=== PATIENT | male | born 1940 | race Caucasian/White ===

== ENCOUNTER 2017-05-24 06:47 | Day surgery (SDC) | payer BC, MEDICARE ==
[2017-05-24] MEDS ORDERED: fentaNYL 100 MCG/2 ML SDV ONE (07:01)
[2017-05-24] MEDS ORDERED: Propofol 200 MG/20 ML SDV ONE (07:02)
[2017-05-24] MEDS ORDERED: Midazolam 1 MG/ML 2 ML SDV ONE (07:02)
[2017-05-24] MEDS ORDERED: Lactated Ringers 1,000 ML IV SCH (08:30)
--- NOTE | 2017-06-14 08:48 | OR ---
DATE OF PROCEDURE: 05/24/2017 PROCEDURE: Colonoscopy. FINDINGS: Large mass in the cecum, mostly consistent with a tubular adenoma. PREOPERATIVE DIAGNOSIS: Screening colonoscopy. POSTOPERATIVE DIAGNOSIS: Screening colonoscopy. RISKS: Risks, benefits, alternatives, and limitations including, but not limited to, infection, bleeding, and perforation were explained to the patient and wished to proceed. DESCRIPTION OF PROCEDURE: The patient was placed in the left lateral decubitus position. Digital rectal exam was performed without abnormality. The scope was introduced and advanced atraumatically to the ileocecal valve. At the ileocecal valve itself, there was an approximately 2 to 3 cm mass consistent with a polyp. Approximately half of this was removed using a hot snare. This was removed in conjunction with elevation with normal saline to " lift it." The scope was brought back through the remainder of the colon. No other abnormalities noted. No abnormalities on retroflexion. The patient tolerated the procedure well. Conrad Powell MD /[id number]
== END 2017-05-24 10:05 | disposition home or self-care (01) ==
LOC: JP.SDS 06:47
PROVIDERS: ATTEND Surgery
DX: D12.0 Benign neoplasm of cecum (principal); I10 Essential (primary) hypertension; G47.33 Obstructive sleep apnea (adult) (pediatric); K21.9 Gastro-esophageal reflux disease without esophagitis
CPT/HCPCS: 45385; 88305; J2250; J2704; J3010; J7120

== ENCOUNTER 2017-06-06 07:04 | Day surgery (SDC) | payer MEDICARE ==
[2017-06-06] MEDS ORDERED: Sodium Chloride 0.9% 1,000 ML IV SCH (08:00)
[2017-06-06] MEDS ORDERED: fentaNYL 100 MCG/2 ML SDV ONE (08:54)
[2017-06-06] MEDS ORDERED: Propofol 200 MG/20 ML SDV ONE (08:54)
--- NOTE | 2017-06-06 11:17 | OR ---
DATE OF PROCEDURE: 06/06/2017 PROCEDURE: Colonoscopy. FINDINGS/PATHOLOGY: 1. Ascending colon polyp, approximately less than 5 mm, completely removed using cold biopsy forceps. 2. Cecal colon tubular adenoma, majority removed using hot snare. COMPLICATIONS: None. FULFILLMENT ASSOCIATE: None. ANESTHESIA: MAC. PREOPERATIVE DIAGNOSIS: Tubular adenoma, cecum. POSTOPERATIVE DIAGNOSIS: Tubular adenoma, cecum. RISKS: Risks, benefits, alternatives, and limitations including, but not limited to infection, bleeding, and perforation were explained to the patient, and he wished to proceed. PROCEDURE IN DETAIL: The patient was placed in left lateral decubitus position. Digital rectal exam was performed without abnormality. The scope was then introduced and advanced atraumatically to the cecum. On the way, there was a very small polyp, approximately 5 mm, completely removed using cold biopsy forceps. The prep was again similar to last time, which was very poor. After about 15 minutes of suction and irrigation, the polyp was identified in the cecum. This is within 1 cm of the appendiceal orifice. This was injected with normal saline to elevate the polyp, then grasped with snare and removed it. Approximately greater than 95% of the polyp was removed. No other bleeding was noted. Scope was then removed, and the patient tolerated the procedure well. Conrad Powell MD /[id number]
== END 2017-06-06 10:50 | disposition home or self-care (01) ==
LOC: JP.SDS 07:04
PROVIDERS: ATTEND Surgery
DX: D12.0 Benign neoplasm of cecum (principal); D12.2 Benign neoplasm of ascending colon; I10 Essential (primary) hypertension; K21.9 Gastro-esophageal reflux disease without esophagitis
CPT/HCPCS: 45380; 45381; 45385; 88305; J2704; J3010; J7040

== ENCOUNTER 2017-11-21 06:17 | Day surgery (SDC) | payer MEDICARE ==
[2017-11-21] MEDS ORDERED: Sodium Chloride 0.9% 1,000 ML IV SCH (07:00)
[2017-11-21] MEDS ORDERED: Propofol 200 MG/20 ML SDV ONE (07:38)
[2017-11-21] MEDS ORDERED: fentaNYL 100 MCG/2 ML SDV ONE (07:38)
--- NOTE | 2017-11-22 07:47 | OR ---
DATE OF PROCEDURE: 11/21/2017 PROCEDURE: Colonoscopy. FINDINGS: 1. Diverticulosis limited to the sigmoid colon, described as moderate without evidence of diverticulitis. 2. Ascending colon polyp, approximately 8 mm, completely removed using cold biopsy forceps. COMPLICATIONS: None. EPIC CUPID ANALYST: None. ANESTHETIC: MAC. PREOPERATIVE DIAGNOSIS: History of colon polyps. POSTOPERATIVE DIAGNOSIS: History of colon polyps. RISKS: Risks, benefits, alternatives, and limitations including but not limited to infection, bleeding, and perforation were explained to the patient who wished to proceed. PROCEDURE IN DETAIL: The patient was placed in left lateral decubitus position. Digital rectal exam was performed without abnormality. The scope was introduced and advanced atraumatically to the ileocecal valve. The scope was brought back through the ascending, transverse, and descending colon and retroflexed. The previous polyp which was noted in the cecum was completely gone. In the ascending colon at the junction of the ascending and transverse colon, an additional small polyp was identified and completely removed. The remainder of the colon was inspected without abnormality, except for diverticulosis described as moderate. No abnormalities on retroflex, except for small hemorrhoids. The patient tolerated the procedure well. Conrad Powell MD /[id number]
== END 2017-11-21 09:23 | disposition home or self-care (01) ==
LOC: JP.SDS 06:17
PROVIDERS: ATTEND Surgery
DX: Z12.11 Encounter for screening for malignant neoplasm of colon (principal); D12.2 Benign neoplasm of ascending colon; K57.30 Diverticulosis of large intestine without perforation or abscess without bleeding; I10 Essential (primary) hypertension; K21.9 Gastro-esophageal reflux disease without esophagitis; Z86.010 Personal history of colon polyps
CPT/HCPCS: 45380; 88305; J2704; J3010; J7030

== ENCOUNTER 2018-06-23 10:30 | Emergency (ER) | payer MEDICARE, OTHER ==
--- NOTE | 2018-06-23 11:45 | EDM.PDOC ---
ED HPI GENERAL MEDICAL PROBLEM - General Chief Complaint: Genitourinary Problem Stated Complaint: PROBLEMS WITH BLADDER Time Seen by Provider: 06/23/18 11:25 Source of Information: Reports: Patient, Family History Limitations: Reports: No Limitations - History of Present Illness INITIAL COMMENTS - FREE TEXT/NARRATIVE: 77-year-old male with frequent urination and slow stream which is concerning him after going through some urologic procedures and having a Zarate catheter up until 3 days ago. He has no fevers or chills or significant discomfort. Associated Symptoms: Denies: Chest Pain, Fever/Chills, Loss of Appetite, Malaise , Nausea/Vomiting, Shortness of Breath Bladder Pain Score (Numeric/FACES): 3 - Related Data Allergies Allergy/AdvReac Type Severity Reaction Status Date / Time No Known Allergies Allergy Verified 06/23/18 11:18 Home Meds: Home Meds Fluticasone Propionate [Flonase] 2 spray NS DAILY PRN 05/23/17 [History] Gabapentin [Neurontin] 600 mg PO BID 05/23/17 [History] Loratadine [Claritin] 10 mg PO DAILY PRN 05/23/17 [History] NIFEdipine [Nifedipine ER] 30 mg PO DAILY 05/23/17 [History] Omeprazole 20 mg PO DAILY 05/23/17 [History] Polyethylene Glycol 3350 [Miralax] 17 gm PO DAILY 05/23/17 [History] Pseudoephedrine HCl [Sudafed] 30 mg PO DAILY PRN 05/23/17 [History] Simvastatin [Zocor] 40 mg PO DAILY 05/23/17 [History] Finasteride 5 mg PO DAILY 06/23/18 [History] Past Medical History HEENT History: Reports: Hard of Hearing, Impaired Vision Other HEENT History: wears glasses Cardiovascular History: Reports: High Cholesterol Respiratory History: Reports: COPD, Sleep Apnea, Other (See Below) Other Respiratory History: "a little bit of COPD" Gastrointestinal History: Reports: Chronic Constipation, Colon Polyp, Diverticulosis, GERD Genitourinary History: Reports: BPH, Other (See Below) Other Genitourinary History: nocturia Musculoskeletal History: Reports: Arthritis Neurological History: Reports: Vertigo Hematologic History: Reports: B12 Deficiency Oncologic (Cancer) History: Reports: Basal Cell Carcinoma Dermatologic History: Reports: Psoriasis, Other (See Below) Other Dermatologic History: basal cell CA on nose - Infectious Disease History Infectious Disease History: Reports: Measles - Past Surgical History HEENT Surgical History: Reports: Cataract Surgery, Tonsillectomy, Other (See Below) Other HEENT Surgeries/Procedures: wisdom teeth GI Surgical History: Reports: Colonoscopy, EGD, Hernia, Inguinal, Grecia Fundoplication Male Surgical History: Reports: Circumcision, Other (See Below) Other Male Surgeries/Procedures: "opened up prostate." Musculoskeletal Surgical History: Reports: Other (See Below) Other Musculoskeletal Surgeries/Procedures:: right wrist surgery Dermatological Surgical History: Reports: Other (See Below) Social & Family History - Family History Family Medical History: Noncontributory - Tobacco Use Smoking Status *Q: Never Smoker - Caffeine Use Caffeine Use: Reports: Coffee - Alcohol Use Days Per Week of Alcohol Use: 7 Number of Drinks Per Day: 2 Total Drinks Per Week: 14 - Recreational Drug Use Recreational Drug Use: No ED ROS GENERAL - Review of Systems Review Of Systems: See Below Constitutional: Denies: Fever, Chills, Malaise Respiratory: Denies: Shortness of Breath GI/Abdominal: Denies: Abdominal Pain, Nausea, Vomiting : Reports: Dysuria, Frequency, Urgency. Denies: Urinary Retention Skin: Reports: No Symptoms ED EXAM, RENAL/ - Physical Exam Exam: See Below Exam Limited By: No Limitations General Appearance: Alert, No Apparent Distress Head: Atraumatic Respiratory/Chest: No Respiratory Distress GI/Abdominal: Soft, Non-Tender (Male) Exam: No: Suprapubic Fullness Neurological: Alert, Oriented Psychiatric: Normal Affect, Normal Mood Course - Vital Signs Last Recorded V/S: Last Vital Signs Temp 96.2 F 06/23/18 11:14 Pulse 68 06/23/18 11:14 Resp 14 06/23/18 11:14 BP 129/65 06/23/18 11:14 Pulse Ox 95 06/23/18 11:14 - Re-Assessments/Exams Free Text/Narrative Re-Assessment/Exam: 06/23/18 11:44 Urine looks clear, post void bladder scan showed only 18 mL. This patient just had a Zarate removed 3 days ago and I think just needs more time as he likely has some urethral irritation. He is emptying the bladder and does not have significant hematuria. He will return over the next 48 hours if worsening such as retention or fever, otherwise no treatment is necessary at this time. Departure - Departure Time of Disposition: 11:51 Disposition: Home, Self-Care 01 Condition: Good Clinical Impression: Urethritis - Discharge Information Instructions: Urethritis, Adult Referrals: Kit Milton LEGAL AID [Primary Care Provider] - Forms: ED Department Discharge Care Plan Goals: Continue urination as needed, return anytime if worsening such as urinary retention or fever, or increased pain. Discuss symptoms with urology if persistent or you develop other concerns.
== END 2018-06-23 11:52 | disposition home or self-care (01) ==
LOC: JP.ED 10:30
DX: N34.2 Other urethritis (principal); J44.9 Chronic obstructive pulmonary disease, unspecified; Z79.899 Other long term (current) drug therapy
CPT/HCPCS: 51798; 99282; 99283

== ENCOUNTER 2020-08-07 18:06 | Emergency (ER) | payer OTHER, MEDICARE ==
--- NOTE | 2020-08-07 18:42 | EDM.PDOC ---
ED HPI GENERAL MEDICAL PROBLEM - General Chief Complaint: General Stated Complaint: SWOLLEN TESTICAL Time Seen by Provider: 08/07/20 18:30 Source of Information: Reports: Patient History Limitations: Reports: No Limitations - History of Present Illness INITIAL COMMENTS - FREE TEXT/NARRATIVE: Feliberto is a 79-year-old male presenting to the ED with concerns about a swollen and painful left testicle. Patient stated the symptoms started about 4 days ago and is continued to worsen each day. Patient has been driving back and forth between his home and [place] to visit his who is currently being hospitalized there after having a seizure and fall. He states that riding in his pickup truck causes it to become very tender. He has not had no problems with urinating. He has a history this significant for recurrent testicular torsion. He states that he has had it on bilateral testicles and that the urologist "punched them back into my abdomen to get the circulation going again". The last time he had a torsion on the right they ended up taking him to the operating room but it does not appear that they did a orchiectomy as he still has both testicles. Denies any fever, chills, cough or shortness of breath, constipation or prolonged bearing down. He does not have a history of hernias. Had no penile discharge. - Related Data Allergies Allergy/AdvReac Type Severity Reaction Status Date / Time No Known Allergies Allergy Verified 08/07/20 18:25 Home Meds: Home Meds Fluticasone Propionate [Flonase] 2 spray NS DAILY PRN 05/23/17 [History] Gabapentin [Neurontin] 600 mg PO BID 05/23/17 [History] Loratadine [Claritin] 10 mg PO DAILY PRN 05/23/17 [History] NIFEdipine [Nifedipine ER] 30 mg PO DAILY 05/23/17 [History] Omeprazole 20 mg PO DAILY 05/23/17 [History] Pseudoephedrine HCl [Sudafed] 30 mg PO DAILY PRN 05/23/17 [History] Simvastatin [Zocor] 40 mg PO DAILY 05/23/17 [History] polyethylene glycoL 3350 [Miralax] 17 gm PO DAILY 05/23/17 [History] Finasteride 5 mg PO DAILY 06/23/18 [History] Tamsulosin [Tamsulosin 24 Hr] 0.4 mg PO DAILY 08/07/20 [History] Past Medical History HEENT History: Reports: Hard of Hearing, Impaired Vision Other HEENT History: wears glasses Cardiovascular History: Reports: High Cholesterol Respiratory History: Reports: COPD, Sleep Apnea, Other (See Below) Other Respiratory History: "a little bit of COPD" Gastrointestinal History: Reports: Chronic Constipation, Colon Polyp, Diverticulosis, GERD Genitourinary History: Reports: BPH, Other (See Below) Other Genitourinary History: nocturia Musculoskeletal History: Reports: Arthritis Neurological History: Reports: Vertigo Hematologic History: Reports: B12 Deficiency Oncologic (Cancer) History: Reports: Basal Cell Carcinoma Dermatologic History: Reports: Psoriasis, Other (See Below) Other Dermatologic History: basal cell CA on nose - Infectious Disease History Infectious Disease History: Reports: Measles - Past Surgical History Head Surgeries/Procedures: Reports: None HEENT Surgical History: Reports: Cataract Surgery, Tonsillectomy, Other (See Below) Other HEENT Surgeries/Procedures: wisdom teeth Cardiovascular Surgical History: Reports: None Respiratory Surgical History: Reports: None GI Surgical History: Reports: Colonoscopy, EGD, Hernia, Inguinal, Grecia Fundoplication Male Surgical History: Reports: Circumcision, Other (See Below) Other Male Surgeries/Procedures: "opened up prostate." Neurological Surgical History: Reports: None Musculoskeletal Surgical History: Reports: Other (See Below) Other Musculoskeletal Surgeries/Procedures:: right wrist surgery Oncologic Surgical History: Reports: None Dermatological Surgical History: Reports: Other (See Below) Social & Family History - Family History Family Medical History: No Pertinent Family History - Tobacco Use Tobacco Use Status *Q: Never Tobacco User Second Hand Smoke Exposure: No - Caffeine Use Caffeine Use: Reports: Coffee - Alcohol Use Days Per Week of Alcohol Use: 7 Number of Drinks Per Day: 2 Total Drinks Per Week: 14 - Recreational Drug Use Recreational Drug Use: No ED ROS GENERAL - Review of Systems Review Of Systems: See Below Constitutional: Reports: No Symptoms GI/Abdominal: Reports: No Symptoms : Reports: Other (Swollen and tender left testicle for 4 days.) ED EXAM, GENERAL - Physical Exam Exam: See Below Exam Limited By: No Limitations General Appearance: Alert, Mild Distress GI/Abdominal: Normal Bowel Sounds, Soft, Non-Tender. No: Guarding, Rebound (Male) Exam: No Hernia, Scrotum Tenderness (L), Testicular Tenderness (L). No: Cremasteric Reflex (No cremasteric reflex on the left. There is a cremasteric reflex on the right.) Neurological: Alert, Oriented, Normal Cognition, No Motor/Sensory Deficits Course - Vital Signs Last Recorded V/S: Last Vital Signs Temp 36.9 C 08/07/20 18:29 Pulse 90 08/07/20 18:29 Resp 16 08/07/20 18:29 BP 145/70 H 08/07/20 18:29 Pulse Ox 96 08/07/20 18:29 - Orders/Labs/Meds Orders: Active Orders 24 hr Category Date Time Status Scrotal Duplex Ltd [US] Stat Exams 08/07/20 18:32 Taken Scrotum and Contents [US] Stat Exams 08/07/20 18:32 Taken Meds: Medications Discontinued Medications Generic Name Dose Route Start Last Admin Trade Name Freq PRN Reason Stop Dose Admin Ceftriaxone Sodium 500 mg 08/07/20 19:31 08/07/20 19:53 Ceftriaxone 500 Mg Vial IM 08/07/20 19:32 500 mg ONETIME ONE Administration - Radiology Interpretation Free Text/Narrative:: Ultrasound of the testicles and scrotal contents as well as duplex managing of the left testicle demonstrate normal flow to the testicles but evidence for acute epididymitis on the left. - Re-Assessments/Exams Free Text/Narrative Re-Assessment/Exam: 08/07/20 19:28 I reviewed the ultrasound showing acute epididymitis on the left. Will place the patient on antibiotics with ceftriaxone 500 mg IM and then doxycycline 100 mg twice daily for 10 days. Indications to return to the ED were discussed with the patient. At this time he suitable for discharge home in satisfactory condition. Departure - Departure Time of Disposition: 19:57 Disposition: Home, Self-Care 01 Clinical Impression: Acute epididymitis - Discharge Information Instructions: Epididymitis Referrals: Kit Milton NP [Primary Care Provider] - Forms: ED Department Discharge Care Plan Goals: You received an injection of ceftriaxone 500 mg to initiate therapy for the epididymitis which is an infection in the collecting system of the testicle. You will also be on doxycycline 100 mg twice daily for 10 days to complete the treatment for this infection. Follow-up with your primary care provider in 10 to 12 days for recheck. Return to the ED should you have increased swelling or difficulty with taking the antibiotic. Sepsis Event Note (ED) - Evaluation Sepsis Screening Result: No Definite Risk - Focused Exam Vital Signs: Vital Signs Temp Pulse Resp BP Pulse Ox 08/07/20 18:29 36.9 C 90 16 145/70 H 96 08/07/20 18:22 36.9 C 90 16 145/70 H 96 - Problem List & Annotations (1) Acute epididymitis SNOMED Code(s): 00565939 Code(s): N45.1 - EPIDIDYMITIS Status: Acute Priority: Medium Current Visit: Yes - Problem List Review Problem List Initiated/Reviewed/Updated: Yes - My Orders Last 24 Hours: My Active Orders 08/07/20 18:32 Scrotal Duplex Ltd [US] Stat Scrotum and Contents [US] Stat - Assessment/Plan Last 24 Hours: My Active Orders 08/07/20 18:32 Scrotal Duplex Ltd [US] Stat Scrotum and Contents [US] Stat
[2020-08-07] MEDS ORDERED: cefTRIAXone 500 MG Vial IM ONE (19:31)
--- NOTE | 2020-08-08 13:10 | US ---
Scrotum and Contents, Scrotal Duplex Ltd CLINICAL HISTORY: Left testicular pain and swelling FINDINGS: Doppler spectra shows normal flow to both testes. The right testicle measures 3.1 x 1.6 x 2.3 cm. The right epididymis contains a 3 mm epididymal cyst. There is a moderate-sized hydrocele with some internal echoes The left testicle measures 3.2 x 1.8 x 2.5 cm. The left epididymis is enlarged and hyperemic. There is some fluid surrounding the testicle and epididymis. IMPRESSION: Enlarged and hyperemic left epididymis with some surrounding fluid is likely secondary to epididymitis Bilateral hydroceles
== END 2020-08-07 20:01 | disposition home or self-care (01) ==
LOC: JP.ED 18:06
DX: N45.1 Epididymitis (principal); E78.00 Pure hypercholesterolemia, unspecified; J44.9 Chronic obstructive pulmonary disease, unspecified; K21.9 Gastro-esophageal reflux disease without esophagitis; Z79.899 Other long term (current) drug therapy
CPT/HCPCS: 76870; 93976; 96372; 99283; 99284; J0696

== ENCOUNTER 2020-12-19 07:29 | Day surgery (SDC) | payer MEDICARE, OTHER ==
[2020-12-19] MEDS ORDERED: Propofol 200 MG/20 ML SDV ONE (07:41)
[2020-12-19] MEDS ORDERED: fentaNYL 100 MCG/2 ML SDV ONE (07:41)
[2020-12-19] MEDS ORDERED: Midazolam 1 MG/ML 2 ML SDV ONE (07:41)
[2020-12-19] MEDS ORDERED: Sodium Chloride 0.9% 1,000 ML IV SCH (08:00)
--- NOTE | 2020-12-19 12:06 | OR ---
DATE OF PROCEDURE: 12/19/2020 SURGEON: Conrad Powell MD PROCEDURE: Colonoscopy. FINDINGS: 1. Cecal polypoid type lesion, approximately 5 mm, completely removed using cold biopsy forceps. 2. Second cecal polypoid type lesion, approximately 5 mm, completely removed using cold biopsy forceps. This one was more distal in proximity to the ileocecal valve. 3. Diverticulosis, moderate, associated with tortuous sigmoid colon. COMPLICATIONS: None. COBOL PROGRAMMER: None. ANESTHESIA: MAC. RISKS: Risks, benefits, alternatives, and limitations including, but not limited to infection, bleeding, perforation, false positives and false negatives were explained to the patient and he wished to proceed. PROCEDURE IN DETAIL: The patient was placed in left lateral decubitus position. Digital rectal exam was performed without abnormality. Scope was introduced and advanced atraumatically to the ileocecal valve. In the cecum itself, there were 2 small polypoid type lesions. The second one was in closer proximity to the valve. These are unknown and could represent a small polyp or benign. Nonetheless, they were biopsied using cold biopsy forceps as described above. Scope was brought back through the remainder of the colon. The patient was noted to have diverticulosis, which would be described as moderate, limited to sigmoid colon without evidence of diverticulitis or bleeding. No abnormalities on retroflexion. No colitis. No old or new blood. Greater than 8 minutes was spent removing the scope. The prep was acceptable, approximately 90% of the luminal surface could be seen. The patient tolerated the procedure well. Conrad Powell MD /[id number]
== END 2020-12-19 10:30 | disposition home or self-care (01) ==
LOC: JP.SDS 07:29
PROVIDERS: ATTEND Surgery
DX: Z12.11 Encounter for screening for malignant neoplasm of colon (principal); D12.0 Benign neoplasm of cecum; K57.30 Diverticulosis of large intestine without perforation or abscess without bleeding; I10 Essential (primary) hypertension; K21.9 Gastro-esophageal reflux disease without esophagitis
CPT/HCPCS: 45380; 88305; J2250; J2704; J3010; J7030

== ENCOUNTER 2021-02-13 10:05 | Emergency (ER) | payer MEDICARE ==
[2021-02-13] MEDS ORDERED: Aspirin 81 MG Tab.Chew PO ONE (10:59)
--- NOTE | 2021-02-13 11:00 | EDM.PDOC ---
ED HPI GENERAL MEDICAL PROBLEM - General Chief Complaint: Chest Pain Stated Complaint: PAIN IN ARM AND HAND, CHEST Time Seen by Provider: 02/13/21 11:00 Source of Information: Reports: Patient History Limitations: Reports: No Limitations - History of Present Illness INITIAL COMMENTS - FREE TEXT/NARRATIVE: pt arrived having discomfort in the left chest. He did have a fall in the past about 2 monthes ago when he hit the chest. He is mildly sob. Onset: Gradual, Other ( he has been having pain for the past 2 mon) Duration: Day(s): Location: Reports: Chest Associated Symptoms: Reports: Chest Pain Left Chest Pain Score (Numeric/FACES): 4 - Related Data Allergies Allergy/AdvReac Type Severity Reaction Status Date / Time environmental Allergy Other Uncoded 12/14/20 10:24 Home Meds: Home Meds Fluticasone Propionate [Flonase] 2 spray NS DAILY PRN 05/23/17 [History] Gabapentin [Neurontin] 450 mg PO BID 05/23/17 [History] NIFEdipine [Nifedipine ER] 30 mg PO DAILY 05/23/17 [History] Omeprazole 20 mg PO BID 05/23/17 [History] Pseudoephedrine HCl [Sudafed] 30 mg PO BID PRN 05/23/17 [History] Simvastatin [Zocor] 40 mg PO DAILY 05/23/17 [History] polyethylene glycoL 3350 [Miralax] 17 gm PO DAILY 05/23/17 [History] Tamsulosin [Tamsulosin 24 Hr] 0.4 mg PO DAILY 08/07/20 [History] Cetirizine [ZyrTEC] 10 mg PO DAILY 12/14/20 [History] Past Medical History HEENT History: Reports: Hard of Hearing, Impaired Vision Other HEENT History: wears glasses Cardiovascular History: Reports: High Cholesterol Respiratory History: Reports: COPD, Sleep Apnea, Other (See Below) Other Respiratory History: "a little bit of COPD" Gastrointestinal History: Reports: Chronic Constipation, Colon Polyp, Diverticulosis, GERD Genitourinary History: Reports: BPH, Other (See Below) Other Genitourinary History: nocturia Musculoskeletal History: Reports: Arthritis, Fracture Neurological History: Reports: Vertigo Psychiatric History: Reports: Depression Hematologic History: Reports: B12 Deficiency Oncologic (Cancer) History: Reports: Basal Cell Carcinoma Dermatologic History: Reports: Psoriasis, Other (See Below) Other Dermatologic History: basal cell CA on nose & chin - Infectious Disease History Infectious Disease History: Reports: Measles - Past Surgical History Head Surgeries/Procedures: Reports: None HEENT Surgical History: Reports: Cataract Surgery, Tonsillectomy, Other (See Below) Other HEENT Surgeries/Procedures: wisdom teeth Cardiovascular Surgical History: Reports: None Respiratory Surgical History: Reports: None GI Surgical History: Reports: Colonoscopy, EGD, Hernia, Inguinal, Grecia Fundoplication Male Surgical History: Reports: Circumcision, Other (See Below) Other Male Surgeries/Procedures: "opened up prostate." Neurological Surgical History: Reports: None Musculoskeletal Surgical History: Reports: Other (See Below) Other Musculoskeletal Surgeries/Procedures:: right wrist surgery Oncologic Surgical History: Reports: None Dermatological Surgical History: Reports: Other (See Below) Social & Family History - Family History Family Medical History: No Pertinent Family History - Tobacco Use Tobacco Use Status *Q: Never Tobacco User - Caffeine Use Caffeine Use: Reports: Coffee - Recreational Drug Use Recreational Drug Use: No ED ROS GENERAL - Review of Systems Review Of Systems: See Below Constitutional: Reports: No Symptoms HEENT: Reports: No Symptoms Respiratory: Reports: Shortness of Breath Cardiovascular: Reports: Chest Pain Endocrine: Reports: No Symptoms GI/Abdominal: Reports: No Symptoms : Reports: No Symptoms Musculoskeletal: Reports: No Symptoms Skin: Reports: No Symptoms Neurological: Reports: No Symptoms ED EXAM, GENERAL - Physical Exam Exam: See Below Free Text/Narrative:: pt arrived with left sided chest pain that has been going on for the past 2 monthes, He did have an injury 2 monthes ago. He fell and did hit the left side. Exam Limited By: No Limitations General Appearance: Alert, Anxious, Mild Distress Ears: Normal TMs Nose: Normal Inspection Throat/Mouth: Normal Inspection Head: Atraumatic Neck: Normal Inspection Respiratory/Chest: Decreased Breath Sounds, Other (pt is having chest pain when he moves and turns. He is not having alot of pain with deep breathing) Cardiovascular: Regular Rate, Rhythm GI/Abdominal: Soft, Non-Tender (Male) Exam: Deferred Rectal (Males) Exam: Deferred Back Exam: Normal Inspection Extremities: Normal Inspection Neurological: Alert, Oriented, Normal Cognition Psychiatric: Anxious Course - Vital Signs Last Recorded V/S: Last Vital Signs Temp 36.1 C 02/13/21 10:28 Pulse 63 02/13/21 10:28 Resp 16 02/13/21 10:28 BP 122/67 02/13/21 10:28 Pulse Ox 99 02/13/21 10:28 - Orders/Labs/Meds Labs: Laboratory Tests 02/13/21 02/13/21 02/13/21 Range/Units 11:20 11:20 11:20 WBC 7.1 (4.5-11.0) K/uL RBC 4.92 (4.30-5.90) M/uL Hgb 14.8 (12.0-15.0) g/dL Hct 43.3 (40.0-54.0) % MCV 88 (80-98) fL MCH 30 (27-31) pg MCHC 34 (32-36) % Plt Count 242 (150-400) K/uL Neut % (Auto) 69.8 H (36-66) % Lymph % (Auto) 17.9 L (24-44) % [place] % (Auto) 10.1 H (2-6) % Eos % (Auto) 1.8 L (2-4) % Baso % (Auto) 0.4 (0-1) % Sodium 137 L (140-148) mmol/L Potassium 4.7 (3.6-5.2) mmol/L Chloride 102 (100-108) mmol/L Carbon Dioxide 27 (21-32) mmol/L Anion Gap 12.7 (5.0-14.0) mmol/L BUN 12 (7-18) mg/dL Creatinine 0.9 (0.8-1.3) mg/dL Est Cr Clr Drug Dosing 70.03 mL/min Estimated GFR (MDRD) > 60 (>60) Glucose 99 (74-106) mg/dL Calcium 9.0 (8.5-10.1) mg/dL Total Bilirubin 0.4 (0.2-1.0) mg/dL AST 17 (15-37) U/L ALT 19 (12-78) U/L Alkaline Phosphatase 75 (46-116) U/L Troponin I High Sens 5.5 (<=60.3) pg/mL C-Reactive Protein 0.14 (0.0-0.3) mg/dL Total Protein 6.9 (6.4-8.2) g/dL Albumin 3.6 (3.4-5.0) g/dL Globulin 3.3 (2.3-3.5) g/dL Albumin/Globulin Ratio 1.1 L (1.2-2.2) Meds: Medications Discontinued Medications Generic Name Dose Route Start Last Admin Trade Name Sreedharq PRN Reason Stop Dose Admin Aspirin 324 mg 02/13/21 10:59 02/13/21 11:12 Aspirin 81 Mg Tab.Chew PO 02/13/21 11:00 324 mg ONETIME ONE Administration - Re-Assessments/Exams Free Text/Narrative Re-Assessment/Exam: 02/13/21 12:29 ekg and trop were neg. His chest xray shows mild copd. He did smoke for over 30 years. He is a nonsmoker now. 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 Departure - Departure Time of Disposition: 12:31 Disposition: Home, Self-Care 01 Condition: Fair Clinical Impression: Chest wall pain Referrals: [facility] [employer] [employer] [Primary Care Provider] - Forms: ED Department Discharge Care Plan Goals: heat to left chest, limit lifting. , naprosyn 500mg bid with food. for 10 days. Sepsis Event Note (ED) - Evaluation Sepsis Screening Result: No Definite Risk - Focused Exam Vital Signs: Vital Signs Temp Pulse Resp BP Pulse Ox 02/13/21 10:28 36.1 C 63 16 122/67 99
--- NOTE | 2021-02-13 11:39 | CR ---
CHEST: 2 view CLINICAL HISTORY:Left-sided chest pain, history of fall COMPARISON:None FINDINGS: Lungs are hyperaerated. There is some streaky density in the right upper lobe. This may be chronic. There is mild generalized interstitial prominence which may also be chronic. There are atherosclerotic changes in the aorta.. The heart size, pulmonary vascularity and hilar structures are normal. No infiltrate effusion or pneumothorax is seen. IMPRESSION: Changes of COPD Irregular streaky densities in the right upper lobe are likely chronic
== END 2021-02-13 12:40 | disposition home or self-care (01) ==
LOC: JP.ED 10:05
DX: R07.89 Other chest pain (principal); E78.00 Pure hypercholesterolemia, unspecified; J44.9 Chronic obstructive pulmonary disease, unspecified; N40.0 Benign prostatic hyperplasia without lower urinary tract symptoms; K21.9 Gastro-esophageal reflux disease without esophagitis; Z91.09 Other allergy status, other than to drugs and biological substances; Z79.899 Other long term (current) drug therapy
CPT/HCPCS: 36415; 71046; 71046-26; 80053; 84484; 85025; 86140; 99285-25; A9270-GY

== ENCOUNTER 2022-09-07 08:24 | Day surgery (SDC) | payer MEDICARE, OTHER ==
[~2022-09-07 08:24] MED LIST: Bupivacaine 0.5%/EPINEPHrine 1:200,000 50 ML MDV ONE; Dexamethasone 4 MG/ML SDV ONE; Glycopyrrolate 0.2 MG/ML 5 ML MDV ONE; Neostigmine Methylsulfate 1 MG/ML 5 ML Syringe ONE; Ondansetron 4 MG/2 ML SDV ONE; Propofol 200 MG/20 ML SDV ONE; Rocuronium 50 MG/5 ML Vial ONE; Succinylcholine 200 MG/10 ML MDV ONE; fentaNYL 250 MCG/5 ML SDV ONE
[2022-09-07 09:03] LABS: HEMATOCRIT 39.1 % (38.4-49.7); HEMOGLOBIN 13.7 g/dL (12.9-16.9); MEAN CORPUSCULAR HEMOGLOBIN 30.9 pg (31.6-35.5); MEAN CORPUSCULAR VOLUME 88.1 fL (81.4-99.0); RED BLOOD CELL COUNT 4.44 M/uL (4.14-5.76); WHITE BLOOD CELL COUNT,WBC 5.6 K/uL (3.2-11.0)
[2022-09-07 09:24] LABS: ALANINE AMINOTRANSFERASE,ALT 20 U/L (12-78); ALBUMIN 3.3 g/dL (3.4-5.0); ALKALINE PHOSPHATASE 72 U/L (46-116); ASPARTATE AMNIOTRANSFERASE,AST 24 U/L (15-37); BILIRUBIN TOTAL 0.5 mg/dL (0.2-1.0); BLOOD UREA NITROGEN,BUN 8 mg/dL (7-18); CALCIUM 9.1 mg/dL (8.5-10.1); CARBON DIOXIDE,CO2 27 mmol/L (21-32); CHLORIDE,CL 102 mmol/L (100-108); CREATININE 0.8 mg/dL (0.8-1.3); ESTIMATED GFR 89 mL/min (>60); GLUCOSE RANDOM 87 mg/dL (74-106); PROTEIN TOTAL,TP 6.5 g/dL (6.4-8.2); SODIUM,NA 135 mmol/L (140-148)
[2022-09-07] MEDS ORDERED: Sodium Chloride 0.9% 1,000 ML IV SCH (10:00)
[2022-09-07] MEDS ORDERED: Ropivacaine 34 ML, dexAMETHasone 8 MG, EPINEPHrine 0.4 MG, Sodium Chloride 0.9% 43.6 ML NERVRT SCH ×4 (10:15)
[2022-09-07] MEDS ORDERED: metroNIDAZOLE/Normal Saline 500 MG in Premix Bag 1 BAG IV ONE (10:30)
[2022-09-07] MEDS ORDERED: ceFAZolin 2 GM in Premix Bag 1 BAG IV ONE (10:30)
[2022-09-07] MEDS ORDERED: ceFAZolin 2 GM in Sodium Chloride 0.9% 50 ML IV ONE (10:30)
[2022-09-07] MEDS ORDERED: Lactated Ringers 1,000 ML ONE (11:49)
[2022-09-07] MEDS ORDERED: Acetaminophen/HYDROcodone 325-5 MG Tab PO PRN (12:57)
== END 2022-09-07 14:35 | disposition home or self-care (01) ==
LOC: JP.SDS 08:24
PROVIDERS: ATTEND Surgery
DX: K41.91 Unilateral femoral hernia, without obstruction or gangrene, recurrent (principal); K40.90 Unilateral inguinal hernia, without obstruction or gangrene, not specified as recurrent; K21.9 Gastro-esophageal reflux disease without esophagitis; N40.0 Benign prostatic hyperplasia without lower urinary tract symptoms; I10 Essential (primary) hypertension; E78.5 Hyperlipidemia, unspecified; G47.33 Obstructive sleep apnea (adult) (pediatric); Z79.899 Other long term (current) drug therapy; Z87.891 Personal history of nicotine dependence
CPT/HCPCS: 36415; 49659; 80053; 85027; A9270; C1781; J0171; J0690; J1100; J2405; J2704; J2710; J2795; J3010; J3490; J7030; J7120; J0330

== ENCOUNTER 2023-12-21 20:11 | Emergency (ER) | payer OTHER ==
[2023-12-21 21:07] LABS: BASOPHILS ABSOLUTE AUTO 0.03 K/uL (0.00-0.10); BASOPHILS PERCENT AUTO 0.4 % (0.1-1.3); EOSINOPHILS ABSOLUTE AUTO 0.09 K/uL (0.00-0.40); EOSINOPHILS PERCENT AUTO 1.1 % (0.0-5.4); HEMATOCRIT 35.5 % (38.4-49.7); HEMOGLOBIN 12.8 g/dL (12.9-16.9); IMMATURE GRAN ABSOLUTE AUTO 0.04 K/uL (0.00-0.23); IMMATURE GRAN PERCENT AUTO 0.5 % (0.0-0.7); LYMPHOCYTES ABSOLUTE AUTO 0.92 K/uL (0.8-3.3); MEAN CORPUSCULAR HEMOGLOBIN 31.8 pg (31.6-35.5); MEAN CORPUSCULAR HGB CONC 36.1 g/dL (31.6-35.5); MEAN CORPUSCULAR VOLUME 88.3 fL (81.4-99.0); MONOCYTES ABSOLUTE AUTO 0.84 K/uL (0.20-0.90); MONOCYTES PERCENT AUTO 10.1 % (3.3-12.6); NEUTROPHILS ABSOLUTE AUTO 6.42 K/uL (1.0-7.6); NEUTROPHILS PERCENT AUTO 76.9 % (40.0-78.1); PLATELET COUNT,PLT 202 K/uL (130-375); RED BLOOD CELL COUNT 4.02 M/uL (4.14-5.76); WHITE BLOOD CELL COUNT,WBC 8.3 K/uL (3.2-11.0)
[2023-12-21 21:27] LABS: A/G RATIO 0.8 (1.2-2.2); ALANINE AMINOTRANSFERASE,ALT 24 U/L (12-78); ALBUMIN 3.1 g/dL (3.4-5.0); ALKALINE PHOSPHATASE 93 U/L (46-116); ASPARTATE AMNIOTRANSFERASE,AST 21 U/L (15-37); BILIRUBIN TOTAL 0.5 mg/dL (0.2-1.0); BLOOD UREA NITROGEN,BUN 11 mg/dL (7-18); C-REACTIVE PROTEIN 13.21 mg/dL (<0.50); CALCIUM 9.5 mg/dL (8.5-10.1); CARBON DIOXIDE,CO2 24 mmol/L (21-32); CHLORIDE,CL 95 mmol/L (100-108); CREATININE 0.9 mg/dL (0.8-1.3); EST CRCL DRUG DOSING (CG) 63.64 mL/min; ESTIMATED GFR 85 mL/min (>60); GLUCOSE RANDOM 144 mg/dL (74-106); POTASSIUM,K 3.4 mmol/L (3.6-5.2); PROTEIN TOTAL,TP 7.2 g/dL (6.4-8.2); SODIUM,NA 129 mmol/L (140-148)
[2023-12-21 21:28] LABS: ANION GAP 13.4 mmol/L (5.0-14.0)
== END 2023-12-21 23:54 | disposition home or self-care (01) ==
LOC: JP.ED 20:11
DX: N45.1 Epididymitis (principal); E78.00 Pure hypercholesterolemia, unspecified; J44.9 Chronic obstructive pulmonary disease, unspecified; K21.9 Gastro-esophageal reflux disease without esophagitis; Z79.899 Other long term (current) drug therapy; Z79.2 Long term (current) use of antibiotics; Z91.09 Other allergy status, other than to drugs and biological substances
CPT/HCPCS: 36415; 76870; 80053; 85025; 86140; 93976; 99284

== ENCOUNTER 2024-05-09 18:47 | Emergency (ER) | payer MEDICARE, OTHER ==
[2024-05-09] MEDS: Tetracaine HCl/PF 0.5% 4 ML Bottle EYEBOTH ONE (20:43)
== END 2024-05-09 20:46 | disposition home or self-care (01) ==
LOC: JP.ED 18:47
DX: S05.01XA Injury of conjunctiva and corneal abrasion without foreign body, right eye, initial encounter (principal); H10.211 Acute toxic conjunctivitis, right eye; E78.00 Pure hypercholesterolemia, unspecified; J44.9 Chronic obstructive pulmonary disease, unspecified; K21.9 Gastro-esophageal reflux disease without esophagitis; Z91.09 Other allergy status, other than to drugs and biological substances; Z79.899 Other long term (current) drug therapy; X58.XXXA Exposure to other specified factors, initial encounter
CPT/HCPCS: 99284